=== PATIENT | male | born 1955 | race Two or more races ===

== ENCOUNTER 2022-09-19 14:12 | Inpatient (IN) | payer MEDICARE, OTHER ==
[~2022-09-19] VITALS: Ht 167.6 cm; Wt 65.8 kg
[2022-09-19] MEDS ORDERED: IV D5 1/2 NS 1000 ML 1,000 ML IV ONE ×2 (14:30→18:30)
[2022-09-19] MEDS ORDERED: IV NORMAL SALINE 1000 ML BAG IV ONE (14:30)
[2022-09-19 14:48] LABS: HEMATOCRIT 32.6 % (36.7-47.1); MEAN CORPUSCULAR HEMOGLOBIN 24.8 uug (23.8-33.4); MEAN CORPUSCULAR VOLUME 78.7 fL (73.0-96.2); PLATELET COUNT (AUTO) 399 K/uL (152-348)
[2022-09-19 15:17] LABS: ACETAMINOPHEN < 2.0 ug/mL (10-30)
[2022-09-19 15:19] LABS: ALANINE AMINOTRANSFERASE 31 U/L (16-63); ALKALINE PHOSPHATASE 91 U/L (50-136); ASPARTATE AMINOTRANSFERASE 15 U/L (15-37); BILIRUBIN,DIRECT 0.1 mg/dL (0.0-0.2); BILIRUBIN,TOTAL 0.4 mg/dL (0.2-1.0); CARBON DIOXIDE 29 mmol/L (21-32); CHLORIDE 106 mmol/L (98-107); CREATININE 1.4 mg/dL (0.6-1.3); POTASSIUM 3.6 mmol/L (3.5-5.1); TOTAL PROTEIN, SERUM 7.6 g/dL (6.4-8.2); UREA NITROGEN, BLOOD 23 mg/dL (7-18)
[2022-09-19 15:36] LABS: GLUCOSE 46 mg/dL (74-106)
[2022-09-19] MEDS ORDERED: VANCOMYCIN IV 1,000 MG in IV DEXTROSE 5% 250 ML IV ONE (15:45)
[2022-09-19] MEDS ORDERED: PIPERACILLIN SODIUM/TAZOBACTAM 3.375 G in IV DEXTROSE 5% 50 ML IV ONE (15:45)
[2022-09-19] MEDS ORDERED: PIPERACILLIN/TAZOBACTAM/D5W 50 ML IV ONE (16:42)
--- NOTE | 2022-09-19 17:22 | NUR ---
Spoke with Pearl from [facility] who stated that the case will be under review and their doctor will call Dr. Vazquez.
[2022-09-19 17:23] LABS: *BILIRUBIN,URIN NEGATIVE (NEGATIVE); *BLOOD, URINE NEGATIVE (NEGATIVE); *CLARITY,URINE CLEAR (CLEAR); *COLOR,URINE YELLOW (YELLOW); *KETONES,URINE NEGATIVE (NEGATIVE); *UROBILINOGEN,URINE 0.2 E.U./dl (NORMAL); LEUKOCYTE ESTERASE ,URINE NEGATIVE (NEGATIVE); NITRITE, URINE NEGATIVE (NEGATIVE); PH,URINE 6.5 (5.0-8.0)
[2022-09-19 17:30] LABS: UGLUCOSE 1+ (NEGATIVE)
[2022-09-19] MEDS ORDERED: VANCOMYCIN IV 200 ML ONE (17:41)
[2022-09-19 18:20] LABS: RBC,URINE 0-3 /HPF (0-3)
[2022-09-19 18:23] LABS: BACTERIA,URINE MODERATE /HPF (NONE SEEN); SQUAMOUS EPITHELIAL CELL,UR MODERATE /HPF (NONE SEEN)
[2022-09-19] MEDS ORDERED: DEXTROSE 50% 50 ML DISP.SYRIN ONE ×2 (18:27→21:55)
[2022-09-19] MEDS ORDERED: DEXTROSE 50% 50 ML DISP.SYRIN IV ONE ×2 (18:30→21:45)
--- NOTE | 2022-09-19 19:06 | NUR ---
Room assignment: 318
[2022-09-19] MEDS ORDERED: ACETAMINOPHEN 650 MG SUPP.RECT RC PRN (20:30)
[2022-09-19] MEDS ORDERED: MAGNESIUM HYDROXIDE 30 ML LIQUID UDC PO PRN (20:30)
[2022-09-19] MEDS ORDERED: ONDANSETRON 4 MG/2 ML VIAL IV PRN (20:30)
[2022-09-19] MEDS ORDERED: MELATONIN 3 MG TABLET PO PRN (20:30)
[2022-09-19] MEDS ORDERED: INSULIN REGULAR, HUMAN 300 UNIT/3 ML VIAL SQ PRN (21:00)
[2022-09-19] MEDS ORDERED: DEXTROSE 50% 50 ML DISP.SYRIN IV PRN (21:00)
--- NOTE | 2022-09-19 21:21 | NUR ---
Called third floor to give report.
--- NOTE | 2022-09-19 21:28 | NUR ---
Called and spoke to Dr. Tamica cyr patient's accucheck was 49
[2022-09-19] MEDS: BLOOD SUGAR DIAGNOSTIC 1 EACH STRIP VI SCH (21:29)
[2022-09-19] MEDS: IV D5/ 0.9% NACL 1,000 ML IV SCH (21:48)
[2022-09-19] MEDS: ATORVASTATIN 40 MG TABLET PO SCH (21:55)
--- NOTE | 2022-09-19 21:55 | NUR ---
Attempted to give patient his atorvastatin but patient became combative and verbally abusive.
[2022-09-19] MEDS ORDERED: ATORVASTATIN 20 MG TABLET ONE (21:56)
[2022-09-19] MEDS ORDERED: IV 10% DEXTROSE 1,000 ML IV STA (22:44)
[2022-09-19] MEDS ORDERED: IV 10% DEXTROSE 1,000 ML IV ONE (22:57)
--- NOTE | 2022-09-19 23:05 | NUR ---
Per MD orders D5 /NS infusion was stopped as D10% was ordered and given.
--- NOTE | 2022-09-19 23:47 | NUR ---
Called third floor and spoke to Amelia SERRATO and gave report.
[2022-09-19] MEDS ORDERED: SODIUM CHLORIDE 4 MEQ/ML VIAL 154 MEQ in IV 10% DEXTROSE 1,000 ML IV STA (23:59)
[2022-09-20] VITALS (7 sets, daily range): BP systolic 126–170; BP diastolic 64–98
--- NOTE | 2022-09-20 00:05 | NUR ---
Patient was transferred to 3rd floor by house nurse James.
--- NOTE | 2022-09-20 00:35 | NUR ---
Pt is noted on the unit as he is a new admit from the ER with Diagnose off AMS as report is received from the [employer] that pt came from a SNF with Low Blood Glucose. Pt is noted with two soft Restraints as he is alert but very combative at these hour. Pt care continue as he is noted with IVF D10 at 100ML/HR and now Blood Glucose is 44. Pt care continue as he is given D50% IVP and another ACC-Check will be done at 0105.
[2022-09-20] MEDS ORDERED: PIPERACILLIN SODIUM/TAZOBACTAM 3.375 G in IV DEXTROSE 5% 50 ML IV SCH (01:00)
--- NOTE | 2022-09-20 01:00 | NUR ---
Pt remain very combative as unable to done a full skin assessment or to take a picture. Pt care continue as Charge is made aware. Pt care continue.
--- NOTE | 2022-09-20 01:18 | NUR ---
Remain very confused and combative with call light in reach and fall precautions in place as D50 IVP noted effective and Pt Blood Gulose is now 118. Pt care continue as he is been monitor closely with IVF D10 at 100ML/HR therapy in progress.
[2022-09-20] MEDS ORDERED: PIPERACILLIN/TAZOBACTAM/D5W 50 ML IV ONE (01:23)
--- NOTE | 2022-09-20 05:22 | NUR ---
Pt is sleeping after AM and skin care done , call light in reach and fall precautions in place as Pt Blood Glucose is been monitor closely and IVF therapy D10 at 100ML/HR in progress.
[2022-09-20] MEDS: BLOOD SUGAR DIAGNOSTIC 1 EACH STRIP VI SCH ×5 (06:58→20:27)
[2022-09-20] MEDS: glipiZIDE 10 MG TABLET PO SCH ×2 (06:58→16:29)
--- NOTE | 2022-09-20 06:59 | NUR ---
Pt remain full code , responsive but very confused and combative , call light in reach and fall precaution sin place as D50 IVP given for Blood Gulose off 54. Pt care continue as Repeat off Blood Gulcose check will be done in an Hour time.
[2022-09-20 07:13] LABS: HEMATOCRIT 30.2 % (36.7-47.1); MEAN CORPUSCULAR HEMOGLOBIN 25.1 uug (23.8-33.4); MEAN CORPUSCULAR VOLUME 78.4 fL (73.0-96.2); PLATELET COUNT (AUTO) 403 K/uL (152-348)
--- NOTE | 2022-09-20 07:29 | NUR ---
Pt care continue as report is given to the AM receiving nurse
[2022-09-20 07:41] LABS: THYROID STIMULATING HORMONE 0.666 mIU/mL (0.358-3.740)
[2022-09-20 07:45] LABS: CREATININE 1.4 mg/dL (0.6-1.3); MAGNESIUM 1.7 mg/dL (1.8-2.4); PHOSPHOROUS 3.1 mg/dL (2.5-4.9); POTASSIUM 3.6 mmol/L (3.5-5.1)
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
[2022-09-20] MEDS: ATENOLOL 50 MG TABLET PO SCH (08:33)
[2022-09-20] MEDS: AMLODIPINE 10 MG TABLET PO SCH (08:33)
[2022-09-20] MEDS ORDERED: VANCOMYCIN IV 1,000 MG in IV DEXTROSE 5% 250 ML IV ONE (09:00)
[2022-09-20] MEDS: IV D5/ 0.9% NACL 1,000 ML IV SCH (09:24)
[2022-09-20] MEDS: PIPERACILLIN SODIUM/TAZOBACTAM 3.375 G in IV DEXTROSE 5% 50 ML IV SCH ×3 (09:24→20:26)
[2022-09-20] MEDS: MAGNESIUM SULFATE/D5W 100 ML IV SCH ×2 (11:47→12:14)
[2022-09-20] MEDS ORDERED: MAGNESIUM OXIDE 400 MG TABLET PO ONE (12:00)
--- NOTE | 2022-09-20 12:00 | NUR ---
BLOOD SUGAR WNL, NO SS OF HYPOGLYCEMIA CONTINUE LINH MONITORING WITH IV D5 NS
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
--- NOTE | 2022-09-20 17:29 | NUR ---
DR NOBLES NOTIFIED FOR PSYCH CONSULT WILL SEE PATIENT IN AM
[2022-09-20] MEDS: MUPIROCIN 2% OINT 22 GM TUBE NS SCH (20:30)
[2022-09-20] MEDS: ATORVASTATIN 40 MG TABLET PO SCH (20:30)
[2022-09-21 00:30] VITALS: BP 142/69
[2022-09-21] MEDS: PIPERACILLIN SODIUM/TAZOBACTAM 3.375 G in IV DEXTROSE 5% 50 ML IV SCH ×3 (02:09→14:10)
[2022-09-21 04:50] VITALS: BP 138/67
[2022-09-21] MEDS: IV D5/ 0.9% NACL 1,000 ML IV SCH (05:53)
[2022-09-21] MEDS: BLOOD SUGAR DIAGNOSTIC 1 EACH STRIP VI SCH ×3 (05:53→17:05)
[2022-09-21 08:04] VITALS: BP 165/84
[2022-09-21] MEDS: glipiZIDE 10 MG TABLET PO SCH ×2 (08:06→17:46)
[2022-09-21] MEDS ORDERED: ATOR40TA PO (08:50)
[2022-09-21] MEDS ORDERED: ATEN50TA PO (08:50)
[2022-09-21] MEDS ORDERED: DOCU-141 PO (08:50)
[2022-09-21] MEDS ORDERED: AMLO10TA4 PO (08:50)
[2022-09-21] MEDS ORDERED: NA P133E RC (08:52)
[2022-09-21] MEDS ORDERED: BISA10SU61 RC (08:52)
[2022-09-21] MEDS ORDERED: LOSA100T3 PO (08:53)
[2022-09-21] MEDS ORDERED: MAGN400O6 PO (08:53)
[2022-09-21] MEDS ORDERED: GLIP10TA11 PO (08:53)
[2022-09-21] MEDS ORDERED: EMPA25TA PO (08:53)
[2022-09-21] MEDS ORDERED: SENN-18 PO (08:55)
[2022-09-21] MEDS ORDERED: ACET-2154 PO (08:55)
[2022-09-21] MEDS ORDERED: LINA5TAB PO (08:55)
[2022-09-21] MEDS ORDERED: ACET-73 PO (08:55)
[2022-09-21] MEDS: AMLODIPINE 10 MG TABLET PO SCH (09:34)
[2022-09-21] MEDS: ATENOLOL 50 MG TABLET PO SCH (09:34)
[2022-09-21] MEDS: MUPIROCIN 2% OINT 22 GM TUBE NS SCH (09:38)
[2022-09-21] MEDS ORDERED: QUETIAPINE FUMARATE 25 MG TABLET PO PRN (11:15)
[2022-09-21] MEDS ORDERED: LORAZEPAM 1 MG TABLET PO PRN (11:15)
[2022-09-21 11:46] VITALS: BP 140/78
[2022-09-21] MEDS ORDERED: VANCOMYCIN IV 1,000 MG in IV DEXTROSE 5% 250 ML IV SCH (13:00)
[2022-09-21 13:02] LABS: HEMATOCRIT 31.6 % (36.7-47.1); MEAN CORPUSCULAR VOLUME 78.2 fL (73.0-96.2); PLATELET COUNT (AUTO) 419 K/uL (152-348)
[2022-09-21 13:12] LABS: CREATININE 1.4 mg/dL (0.6-1.3); MAGNESIUM 1.9 mg/dL (1.8-2.4); PHOSPHOROUS 2.8 mg/dL (2.5-4.9); POTASSIUM 3.5 mmol/L (3.5-5.1)
[2022-09-21] MEDS ORDERED: SOD FERRIC GLUC COMPLX/SUCROSE 125 MG in IV NORMAL SALINE 100 ML IV SCH (14:00)
--- NOTE | 2022-09-21 14:01 | NUR ---
Discharge instructions given to patient and family. Rt upper arm midline removed 9intact. Pt left via wheelchair accompanied by son. prescriptions for home med to pharmacy. Addendum: 09/21/22 at 1456 by [facility] INPATIENT RN16 RN Wrong patient Above note is for another patient
[2022-09-21 15:53] VITALS: BP 158/76
--- NOTE | 2022-09-21 17:00 | NUR ---
Pt rec'd in am asleep, easily aroused . No distress noted. refused breakfast but ate 75% of lunch served. PIV to rt arm with D5NS at 60 mls/hr. Seen and evaluated by Blood drawn for labs. Pt pending transfer to [place].
[2022-09-21 18:00] VITALS: BP 156/67
--- NOTE | 2022-09-21 19:08 | NUR ---
Report given to Josseline at [facility] Pt transported by ambulance at 1910. Stable at time of transport. Upper Denture sent with patient.
== END 2022-09-21 19:12 | disposition short-term general hospital (02) | DRG 871 ==
LOC: ER 14:12 → TRANSITION 18:00 → TELE-TD3 23:50
PROVIDERS: ADMIT Internal Medicine; ATTEND Internal Medicine
DX: A41.9 Sepsis, unspecified organism (principal); G93.41 Metabolic encephalopathy; N17.0 Acute kidney failure with tubular necrosis; J18.1 Lobar pneumonia, unspecified organism; F41.9 Anxiety disorder, unspecified; Z79.899 Other long term (current) drug therapy; N18.30 Chronic kidney disease, stage 3 unspecified; Z87.891 Personal history of nicotine dependence; I12.9 Hypertensive chronic kidney disease with stage 1 through stage 4 chronic kidney disease, or unspecified chronic kidney disease; D64.9 Anemia, unspecified; E78.5 Hyperlipidemia, unspecified; E11.649 Type 2 diabetes mellitus with hypoglycemia without coma; E11.22 Type 2 diabetes mellitus with diabetic chronic kidney disease; E11.40 Type 2 diabetes mellitus with diabetic neuropathy, unspecified; F29 Unspecified psychosis not due to a substance or known physiological condition; F39 Unspecified mood [affective] disorder; Z79.84 Long term (current) use of oral hypoglycemic drugs
CPT/HCPCS: 36415; 70450; 71045; 83550; 83605; 83735; 84100; 84443; 84484; 85025; 87040; 93005; A4663; G0378; J1815; J2543; J2916; J3370; J3475; J3490; J7042; J7050; J7131